=== PATIENT | female | born 1955 | race Two or more races ===

== ENCOUNTER 2025-04-12 08:45 | Outpatient (REF) | payer MEDICARE, SELFPAY ==
--- OUTSIDE RECORDS SUMMARY | 2025-04-12 08:47 | XMS_ITS | Encounter Summary ---
Author Organization [facility] Address [address] [place] [address] Phone Care Team Providers Care Tool And Gauge Inspector Name Role Phone Madison Pickens MD Primary Care Provider [phone] Encounter Details Date Type Department Care Team (Late Contact Info) Description 07/18/2024 Documentation Only [facility] [address] [place] [phone] [place] [address] [place] [address] Social History Tobacco Use Types Packs/Day Years Used Date Smoking Tobacco: Former Cigarettes 1 30.2 0 1971 - 08/28/2001 Smokeless Tobacco: Never Alcohol Use Standard Drinks/Week Comments Not Currently 0 (1 standard drink = 0.6 oz pur e alcohol) Quit 1978 Comments Unknown Sex and Gender Information Value Date Recorded Sex Assigned at Female 01/20/2023 6:18 PM EST Legal Sex Female 11:02 AM EST Gender Identity Female 01/20/2023 6:18 PM EST Sexual Orientation Not on file documented as of this encounter Plan of Treatment Upcoming Encounters Date Type Department Care Team (Late Contact Info) Description 07/05/2025 1:45 PM EDT Office Visit [facility] [address] [place] [phone] Jose Case [address] [place] [address] documented as of this encounter Visit Diagnoses Not on filedocumented in this encounter Care Teams Tool And Gauge Inspector Relationship Specialty Start Date End Date Madison Pickens MD [address] [facility] [place] [address] PCP - General Internal Medicine 01/27/22 documented as of this encounter
== END 2025-04-12 08:46 | disposition home or self-care (01) ==
LOC: HO.MAMMO 08:45
PROVIDERS: PCP Internal Medicine; Visit Provider Internal Medicine
DX: Z12.31 Encounter for screening mammogram for malignant neoplasm of breast (principal)
CPT/HCPCS: 77063; 77067

== ENCOUNTER → 2025-04-12 09:00 | Outpatient (BNV) | payer MEDICARE, SELFPAY | PROVIDERS: PCP Internal Medicine; Visit Provider Internal Medicine | DX: Z12.31 Encounter for screening mammogram for malignant neoplasm of breast (principal) | CPT/HCPCS: 77063; 77067 ==

== ENCOUNTER 2025-06-06 12:31 | Outpatient (REF) | payer MEDICARE, SELFPAY ==
--- NOTE | ~2025-06-06 | US_ITS ---
EXAMINATION: MM DIAGNOSTIC DIGITAL BREAST TOMOSYNTHESIS, LEFT Limited left breast ultrasound. CLINICAL INFORMATION: Call back from screening for asymmetry in the lateral left breast on CC view. COMPARISON: Mammography: [facility] on PACS. TECHNIQUE: Digital breast tomosynthesis is performed in both the craniocaudal and mediolateral oblique views along with computer-aided detection (CAD). Synthesized 2D images are generated from the tomosynthesis. FINDINGS: There are scattered areas of fibroglandular density (ACR BI-RADS breast composition Category b). Previously seen asymmetry in the lateral left breast on CC view does not persist on additional imaging projections and likely represented overlapping breast tissue. There are no significant masses, abnormal calcifications, or other abnormalities. Targeted color Doppler ultrasound scanning in the upper outer quadrant of the left breast demonstrates normal fibroglandular breast tissue. There is no sonographic abnormal finding. US/US breast LT limited mamm only IMPRESSION: No mammographic evidence of malignancy. ASSESSMENT: BI-RADS BI-RADS 1 - Negative RECOMMENDATION: 1 year F/U Results were provided to the patient at time of visit by the technologist. This patient's information was entered into a reminder system with a target due date for their next mammogram. Electronically signed by: Josee Rachel DO 06/06/2025 01:40 PM EDT
--- OUTSIDE RECORDS SUMMARY | 2025-06-06 12:53 | XMS_ITS | Clinical Summary ---
Author Organization [facility] Address [address] [place] [address] Phone Care Team Providers Care Paper Machine Tender Name Role Phone Lore Turner MD Primary Care Provider [phone] Allergies Active Allergy Reactions Criticality Noted Date Comments Latex 11/11/2024 Lisinopril Rash 11/11/2024 Surgical History Surgery Date Site/Laterality Comments COLONOSCOPY 08/17/2014 PROCEDURE: HISTORICAL COLONOSCOPY; COMMENT: 11/14/2003, 06/2003; no reports HYSTERECTOMY 1982 PROCEDURE: HISTORICAL HYSTERECTOMY CHOLECYSTECTOMY 1973 PROCEDURE: HISTORICAL CHOLECYSTECTOMY Medical History Medical History Date Comments Diverticulosis 01/02/2020 DX:Diverticulosi s GERD (gastroesophageal reflux disease) 01/02/2020 DX:GERD (gastroesophageal reflux disease) Glaucoma 01/02/2020 DX:Glaucoma Hyperlipidemia 01/02/2020 DX:Hyperlipidemi a Hypertension 01/02/2020 DX:Hypertension Hypothyroidism 01/02/2020 DX:Hypothyroidis m; COMMENT: S/p I131 for hyperthyroid 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, [facility]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) Osteopenia 01/02/2020 DX:Osteopenia Type 2 diabetes mellitus wit hout complication ([facility] V24, [facility] V28) 01/02/2020 DX:Type 2 diab etes mellitus without complication ([facility]) Mastalgia 01/02/2020 DX:Mastalgia; CO MMENT: Baseline left breast x4 yrs Kidney disease Graves disease A-fib ([facility] V24, [facility] V28) Family History Medical History Relation Name Comments Alcohol abuse Father CKD Diabetes Mother Breast Cancer Diabetes Sister 1 Jonna Diabetes Sister 2 Yesi Relation Name Status Comments Father Mother Sister 1 Jonna Alive Sister 2 Yesi Alive Social History Tobacco Use Types Packs/Day Years Used Date Smoking Tobacco: Former Cigarettes 0 11/14/1970 - 11/14/2002 Alcohol Use Standard Drinks/Week Comments Yes 0 (1 standard drink = 0.6 oz pur e alcohol) Comments Unknown Sex and Gender Information Value Date Recorded Sex Assigned at Not on file Legal Sex Female 11:11 PM EST Gender Identity Not on file Sexual Orientation Not on file Obstetrics History Last Filed Vital Signs Vital Sign Reading Time Taken Comments Blood Pressure 135/55 11/11/2024 9:29 AM EST Pulse 86 11/11/2024 9:29 AM EST Temperature 36.7 C (98.1 F) 11/11/2024 9:29 AM EST Respiratory Rate 16 11/11/2024 9:29 AM EST Oxygen Saturation 99% 11/11/2024 9:29 AM EST Inhaled Oxygen Concentration - - Weight 73.5 kg (162 lb) 11/11/2024 9:29 AM EST Height 162.6 cm (5' 4 ) 11/11/2024 9:29 AM EST Body Mass Index 27.81 11/11/2024 9:29 AM EST Plan of Treatment Health Maintenance Due Date Last Done Comments Diabetes: Annual GFR (Glomerular Filtration Rate) 1953 Diabetes: Annual Foot Exam 1963 Diabetes: Annual Retina Eye Exam 1963 COVID-19 Vaccine ( season) 2024 09/07/2023, 07/28/2022, 05/12/2022, Additional history exists Colorectal Cancer Screening: Colonoscopy 11/11/2024 Diabetes: Annual Urine Albumin-Creatinine Ratio (uACR) 11/11/2024 02/09/2022, 10/24/2020 Diabetes: Blood Sugar Control Test (HGBA1C) 11/11/2024 03/09/2024, 03/09/2024, 11/29/2023, Additional history exists Falls Risk Assessment 11/11/2024 Hepatitis C Screening 11/11/2024 Hypertension/CHF/CAD Annual BMP Blood Test 11/11/2024 Medicare Annual Wellness Visit 11/11/2024 Social Influencers of Health Screening 11/11/2024 Depression Screening 11/14/2024 Influenza Vaccine (#1) 2025 4, 08/18/2023, 07/28/2022, Additional history exists Breast Cancer Screening 12/16/2025 12/16/2023 Cholesterol Screening (Lipid Panel) 07/12/2028 07/12/2023 DTaP,Tdap,and Td Vaccines (4 - Td or Tdap) 10/28/2030 10/28/2020, 11/19/2009, 12/12/1999 Osteoporosis Screening (Bone Density Screening) 12/23/2033 12/23/2023, 12/23/2023 Pneumococcal Vaccine: 50+ Years Completed 10/23/2020, 10/23/2019, 08/01/2018, Additional history exists Zoster Vaccines Completed 10/19/2021, 03/15, 10/03/2016 RSV Immunization Adult Patients Completed 09/13/2023 HIB Vaccines Aged Out No longer eligi ble based on patient's age to complete this topic HPV Vaccines Aged Out No longer eligi ble based on patient's age to complete this topic Hepatitis A Vaccines Aged Out No long er eligible based on patient's age to complete this topic Hepatitis B Vaccines Aged Out No long er eligible based on patient's age to complete this topic IPV Vaccines Aged Out No longer eligi ble based on patient's age to complete this topic MMR Vaccines Aged Out No longer eligi ble based on patient's age to complete this topic Meningococcal ACWY Vaccine Aged Out N o longer eligible based on patient's age to complete this topic Meningococcal B Vaccine Aged Out No l onger eligible based on patient's age to complete this topic RSV Immunization Patients Under 20 months Aged Out No longer eligible based on patient's age to complete this topic Varicella Vaccines Aged Out No longer eligible based on patient's age to complete this topic Insurance [facility] on file Care Teams Paper Machine Tender Relationship Specialty Start Date End Date Lore Turner MD [address] [place] [address] [address] [place] [address] PCP - General Internal Medicine 11/11/24
--- OUTSIDE RECORDS SUMMARY | 2025-06-06 12:53 | XMS_ITS | Encounter Summary ---
Author Organization [facility] Address [address] [place] [address] Phone Care Team Providers Care Relay Man Name Role Phone Madison Pickens MD Primary Care Provider [phone] Encounter Details Date Type Department Care Team (Late Contact Info) Description 07/18/2024 Documentation Only [facility] [address] [place] [phone] [place] [address] [place] [address] Social History Tobacco Use Types Packs/Day [...] Visit [facility] [address] [place] [phone] Jose Case [address] [place] [address] documented as of this encounter Visit Diagnoses Not on filedocumented in this encounter Care Teams Relay Man Relationship Specialty Start Date End Date Madison Pickens MD [address] [place] [address] PCP - General Internal Medicine 01/27/22 documented as of this encounter
--- OUTSIDE RECORDS SUMMARY | 2025-06-06 12:53 | XMS_ITS | Patient Health Record ---
Author Organization [facility] Address [address] [place] [address] Care Team Providers Care Senior Cytotechnologist Name Role Phone Renébreana Cathy Primary Care Provider Unavailab Josue Smithik Unavailable [phone] Monse Myers Unavailable [phone] Allergies Allergen (clinical drug ingredient) Drug/Non Drug Allergy documented on EMR Reaction Allergy Type Onset Date Status Latex latex (uncoded) Unknown Allergy Acti ve lisinopril Lisinopril Unknown Drug Allergy Activ e Results Component Value Reference Range Notes HEMOGLOBIN A1C (GLYCOHEMOGLO BIN) Reviewed date:05/13/2025 02:13:26 PM Interpretation: Performing Lab: Notes/Report: HEMOGLOBIN A1C % (HH) 10 Reason For Referral No Information Medications Medication SIG (Take, Route, Frequency, Duration) Notes Start Date End Date Status Centrum Active Extra Depth Orthopedic Shoes, (1) Pair With (3) Pair Custom Heat Molded Multidensity Innersoles Dx: NIDDM/PVD(E11.51), Hammertoe Foot Deformity(M20.41,M20 .42), Preulcerative Skin Lesion(s)(L85.1) Wear Daily; Duration: 365 days 05/13/2025 Active Aspirin Active Lantus 35 units before bed Active Insulin Lispro Activ e Trulicity Not-Taking Latanoprost Active Levothyroxine Sodium Active Rosuvastatin Calcium Active Losartan Potassium A ctive Metoprolol Succinate Active Timolol Maleate Acti ve Immunizations Vaccine Route Administration Date Status Comme nts Influenza Unknown 07/16/2024 Administered Social History Tobacco Use: Social History Observation Description Date Details (start date - stop date) Never Smoker NA - NA Tobacco use other than smoking: Question Answer Notes Are you an other tobacco user? No Tobacco Control (Standard) Question Answer Notes Tobacco use: Nonsmoker Additional Findings: Tobacco non-user Current no nsmoker AUDIT-C (Standard) Question Answer Notes Did you have a drink containing alcohol in the p ast year? No Points 0 Interpretation Negative Problems Problem Type SNOMED Code ICD Code Onset Dates Problem Status W/U Status Risk Notes Problem Acquired hammer toe of right foot (5789914909876 105) Other hammer toe(s) (acquired), right foot (M20.41) Active confirmed Problem Acquired hammer toe of left foot (9627004656939 103) Other hammer toe(s) (acquired), left foot (M20.42) Active confirmed Problem Type 2 diabetes mellitus with peripheral angiopathy (743953824) Type 2 diabetes mellitus with diabetic peripheral angiopathy without gangrene (E11.51) Active confirmed Q7(A), Q8(2B), Q9(1B,2C) Vital Signs Blood pressure diastolic 70 mm Hg 05/13/2025 Height 5 ft 4 in in 05/13/2025 Blood pressure systolic 136 mm Hg 05/13/2025 Weight 165 lbs 05/13/2025 BMI 28.32 kg/m2 05/13/2025 Procedures Procedure Date Ordered Date Performed Result Body Sit e 12770-HIMC SKIN LESIONS, OVER 4 05/13/2025 N/A [id number] DYSTROPHIC NAILS ANY # 05/13/2025 N/A Encounters Encounter Location Date Provider Diagnosis [facility] [address] 05/13/2025 Esvin Biggs Type 2 diabetes mellitus with diabetic peripheral angiopathy without gangrene E11.51 ; Other hammer toe(s) (acquired), right foot M20.41 and Other hammer toe(s) (acquired), left foot M20.42 [facility] [address] [place] [address] 02/13/2025 Esvin Biggs Assessments Encounter Date Diagnosis (ICD Code) Assessment Notes Treatment Notes Treatment Clinical Notes Section Notes 05/13/2025 Other hammer toe(s) (acquired), right foot (ICD-10 - M20.41) Patient Educated with: DIABETIC FOOT CARE INSTRUCTIONS.p df (DIABETIC FOOT CARE INSTRUCTIONS.p df) 05/13/2025 Type 2 diabetes mellitus with diabetic peripheral angiopathy without gangrene (ICD-10 - E11.51) Q7(A), Q8(2B), Q9(1B,2C) 05/13/2025 Other hammer toe(s) (acquired), left foot (ICD-10 - M20.42) Plan Of Treatment Pending Test Test Name Order Date 10635-NWYU SKIN LESIONS, OVER 4 05/13/20 25 [id number] DYSTROPHIC NAILS ANY # Next Appt Details Provider Name:Esvin Biggs , 08/12/2025 09:30:00 AM, [address] [facility], [address], [place], [address], Insurance Providers Payer Name Payer Address Payer Phone Subscriber Number Group Number Insured Name Patient Relationship to Insured Coverage Start Date Coverage End Date [employer] [place] [employer] [facility] [address] [place] [address] [id number] Toshia Archuleta i Self - patient is the insured 5 Medical (General) History Medical History History ICD Code CKD Glaucoma HBP Anemia Back,Hip,and Knee pain Cataracts covid-19 Gall bladder problems thyroid Diabetes Measles Mumps Chicken pox Surgical History Surgery Date(Month/Year) Gall bladder removal 1973 hysterectomy 1979 hammer toe B 5th toes 2003
--- OUTSIDE RECORDS SUMMARY | 2025-06-06 12:53 | XMS_ITS | Patient Health Record ---
Author Organization .[facility] Address [address] [facility] [facility] [address] [place] [address] Care Team Providers Care Fishing Worker Name Role Phone Madison Pickens M.D. Primary Care Provider Unavail able ANNIE COTTON Unavailable [phone] Allergies No Known Allergies Reason For Referral No Information Medications Medication SIG (Take, Route, Frequency, Duration) Notes Start Date End Date Status Losartan Potassium-HCTZ Not-Taking Lisinopril Not-Takin g Aspir-81 Active Levothyroxine Sodium Active Lumigan Not-Taking Losartan Potassium A ctive prednisoLONE Acetate Not-Taking Meclizine HCl Active OneTouch Ultra Not-T aking Timolol Maleate Not- Taking Latanoprost Active Nitrofurantoin Monohyd Macro Not-Taking hydroCHLOROthiazide Not-Taking Simvastatin Active Trulicity Active Social History Tobacco Use: Social History Observation Description Date Details (start date - stop date) Never Smoker NA - NA Tobacco Use/Smoking Question Answer Notes Are you a nonsmoker Problems Problem Type SNOMED Code ICD Code Onset Dates Problem Status W/U Status Risk Notes Problem Dizziness and giddiness (547474277) Dizziness and giddiness (R42) Active confirmed Problem Sensorineural hearing loss, bilateral (209748835) Sensorineural hearing loss (SNHL) of both ears (H90.3) Active confirmed Problem Abnormal gait (87814476) Imbalance (R26.89) Active confirmed Plan Of Treatment No Information Insurance Providers Payer Name Payer Address Payer Phone Subscriber Number Group Number Insured Name Patient Relationship to Insured Coverage Start Date Coverage End Date [facility] [address] [place] [address] [id number] Toshia Archuleta i Self - patient is the insured Medical (General) History Medical History History ICD Code diabetes dizziness hearing loss thyroid problem Surgical History Surgery Date(Month/Year) cholesystectomy
== END 2025-06-06 12:32 | disposition home or self-care (01) ==
LOC: HO.MAMMO 12:31
PROVIDERS: PCP Internal Medicine; Visit Provider Internal Medicine
DX: N64.89 Other specified disorders of breast (principal)
CPT/HCPCS: 76642; 77061; 77065

== ENCOUNTER → 2025-06-06 13:00 | Outpatient (BNV) | payer MEDICARE, SELFPAY | PROVIDERS: PCP Internal Medicine; Visit Provider Internal Medicine | DX: N63.21 Unspecified lump in the left breast, upper outer quadrant (principal) | CPT/HCPCS: 76642; 77065; G0279 ==